=== PATIENT | male | born 1935 | race Caucasian/White ===

== ENCOUNTER 2021-08-23 12:01 | Emergency (ER) | payer MEDICARE ==
[2021-08-23 13:35] VITALS: BP 169/87; PULSE 93; RESP 20; TEMP 98.4
--- NOTE | 2021-08-23 14:01 | XR ---
Left wrist HISTORY: Trauma and pain, swelling 4 views of the left wrist There is a minimally displaced intra-articular radial styloid fracture present. Chondrocalcinosis not ed incidentally. No evident dislocation. There is some widening of the scapholunate distance. Soft ti ssue swelling is noted. Degenerative changes are present at the carpometacarpal joint. IMPRESSION: Radial styloid fracture, scapholunate dissociation.
--- NOTE | 2021-08-23 15:44 | ED ---
Fall HPI - General Chief Complaint: Fall Stated Complaint: Fall Time Seen by Provider: 08/23/21 15:20 Source: patient, family, RN notes reviewed Mode of arrival: wheelchair - History of Present Illness Initial Comments: Patient is an 86-year-old male presenting to the emergency Department with complaints of left wrist pain after he fell yesterday. Patient states he was attempting to get out of the vehicle when he tripped and fell forward putting out his left hand to try to catch himself. He states now his head on the ground however his son states that they made of just a little bit. Patient denies any headache, no neck pain. He denies any facial pain, no chest pain or shortness of breath. He states he is only here because of left wrist will not stop hurting. There is some swelling to the area. He denies any previous injuries to his left wrist. He has no further complaints. - Related Data Allergies Allergy/AdvReac Type Severity Reaction Status Date / Time No Known Allergies Allergy Verified 08/23/21 13:35 Review of Systems ROS Statement: Those systems with pertinent positive or pertinent negative responses have been documented in the HPI. ROS Other: All systems not noted in ROS Statement are negative. Past Medical History Past Medical History: Heart Failure, Diabetes Mellitus, Hyperlipidemia, Hypertension History of Any Multi-Drug Resistant Organisms: None Reported Past Surgical History: Coronary Bypass/CABG Past Psychological History: No Psychological Hx Reported Smoking Status: Never smoker Past Alcohol Use History: None Reported Past Drug Use History: None Reported General Exam - General Exam Comments Initial Comments: GENERAL: Patient is well-developed and well-nourished. Patient is nontoxic and in no acute distress. HEAD: Atraumatic, normocephalic. There is no hematomas, no abrasions. EYES: Pupils equal round and reactive to light, extraocular movements intact, sclera anicteric, conjunctiva are normal. Eyelids were unremarkable. ENT: Moist mucous membranes. NECK: Normal range of motion, supple without lymphadenopathy or JVD. He has no midline tenderness. LUNGS: Unlabored respirations. Breath sounds clear to auscultation bilaterally and equal. No wheezes rales or rhonchi. HEART: Regular rate and rhythm without murmurs, rubs or gallops. MUSCULOSKELETAL: Patient has pain with palpation of the left wrist, distal radius area, there is some mild swelling present, is neurovascular intact. No clubbing or cyanosis. NEUROLOGICAL: Patient is alert and oriented x 3. Motor and sensory are also intact. Cranial nerves II through XII grossly intact. Symmetrical smile. Normal speech, normal gait. PSYCH: Normal mood, normal affect. SKIN: Warm, Dry, normal turgor, no rashes or lesions noted. Limitations: no limitations Course Vital Signs 08/23/21 13:31 Temperature 98.4 F Pulse Rate 93 Respiratory 20 Rate Blood Pressure 169/87 O2 Sat by Pulse 98 Oximetry Procedures - Orthopedic Splinting/Casting Injury #1 Side: left Upper Extremity Injury Location: short arm, wrist Upper Extremity Immobilizer: posterior splint, thumb spica, William wrap, synthetic pre-padded splint Medical Decision Making - Medical Decision Making Patient is an 86-year-old male here after he fell while getting out of a car yesterday. He states his only complaint is left wrist pain. No head or neck pain, no other injuries from this fall. X-rays reveal a radial styloid fra cture, scapholunate disassociation. Patient was placed in a posterior and thumb spica splint. He tolerated this very well. He is from [place] and will follow-up with his doctor and orthopedic doctor when he gets back home. Recommended Tylenol for any discomfort. Patient and patient's son are in agreement with this plan of care and he is stable for discharge. Case discussed with Dr. Dover. Disposition Clinical Impression: Fall, Nondisplaced fracture of left radial styloid process, initial encounter for closed fracture Disposition: HOME SELF-CARE Condition: Stable Instructions (If sedation given, give patient instructions): Wrist Fracture in Adults (ED) Additional Instructions: Please return to the Emergency Department if symptoms worsen or any other concerns. Please leave splint in place until follow-up with orthopedic doctor. May apply ice to the wrist for pain and swelling control. Recommend Tylenol for any discomfort. Is patient prescribed a controlled substance at d/c from ED?: No Referrals: Nonstaff,Physician [Primary Care Provider] - 1-2 days Time of Disposition: 15:44
== END 2021-08-23 16:09 | disposition home or self-care (01) ==
LOC: EC 12:01
DX: S52.515A Nondisplaced fracture of left radial styloid process, initial encounter for closed fracture (principal); I11.0 Hypertensive heart disease with heart failure; I50.9 Heart failure, unspecified; E11.9 Type 2 diabetes mellitus without complications; E78.5 Hyperlipidemia, unspecified; Z95.5 Presence of coronary angioplasty implant and graft; W01.0XXA Fall on same level from slipping, tripping and stumbling without subsequent striking against object, initial encounter
CPT/HCPCS: 29125; 99283